=== PATIENT | female | born 1980 | race Caucasian/White ===

== ENCOUNTER 2021-05-29 15:31 | Emergency (ER) | payer MEDICAID ==
[~2021-05-29] VITALS: Ht 154.9 cm; Wt 56.0 kg
[2021-05-29 16:21] VITALS: BP 118/70
[2021-05-29] MEDS ORDERED: NAPR-56 PO (16:28)
[2021-05-29] MEDS ORDERED: PENI250T2 PO (16:28)
== END 2021-05-29 16:43 | disposition home or self-care (01) ==
LOC: ER 15:31
DX: K01.1 Impacted teeth (principal); K08.89 Other specified disorders of teeth and supporting structures; Z79.2 Long term (current) use of antibiotics; Z79.899 Other long term (current) drug therapy
CPT/HCPCS: 99283

== ENCOUNTER 2022-02-25 16:49 | Emergency (ER) | payer MEDICAID ==
[~2022-02-25] VITALS: Ht 157.5 cm; Wt 62.6 kg
[2022-02-25 17:21] VITALS: BP 117/72
== END 2022-02-25 18:36 | disposition home or self-care (01) ==
LOC: ER 16:51
DX: F41.9 Anxiety disorder, unspecified (principal); M25.511 Pain in right shoulder; R53.1 Weakness
CPT/HCPCS: 73030; 99283

== ENCOUNTER 2022-09-30 15:53 | Emergency (ER) | payer MEDICAID ==
[~2022-09-30] VITALS: Ht 154.9 cm; Wt 70.0 kg
[2022-09-30 16:21] VITALS: BP 112/57
[2022-09-30 16:55] LABS: BASOPHILS # (AUTO) 0.1 X10'3 (0-0.2); BASOPHILS % (AUTO) 0.8 % (0-1); EOSINOPHILS % (AUTO) 0.6 % (0-6); HEMATOCRIT 41.1 % (35.0-45.0); HEMOGLOBIN 13.4 g/dl (12.0-16.0); LYMPHOCYTES # (AUTO) 2.3 X10'3 (1.1-4.8); LYMPHOCYTES % (AUTO) 28.1 % (21-51); MEAN CORPUSCULAR HEMOGLOBIN 27.4 PG (27.0-31.0); MEAN CORPUSCULAR HGB CONC 32.7 g/dL (33.0-36.5); MEAN CORPUSCULAR VOLUME 83.9 FL (78-98); MEAN PLATELET VOLUME 8.5 FL (7.4-10.4); MONOCYTES # (AUTO) 0.6 X10'3 (0-0.9); MONOCYTES % (AUTO) 7.1 % (2-12); NEUTROPHILS # (AUTO) 5.2 X10'3 (1.8-7.7); NEUTROPHILS % (AUTO) 63.4 % (42-75); PLATELET COUNT 306 X10'3 (140-440); RED CELL DISTRIBUTION WIDTH 13.2 % (11.5-14.5); WHITE BLOOD COUNT 8.2 X10'3 (4.5-11.0)
[2022-09-30 18:03] LABS: ALANINE AMINOTRANSFERASE 14 U/L (12-78); ALBUMIN 3.6 G/DL (3.4-5.0); ALBUMIN/GLOBULIN RATIO 0.9 (1.1-1.5); ALKALINE PHOSPHATASE 94 IU/L (46-116); ANION GAP 10 (8-16); ASPARTATE AMINO TRANSFERASE 21 U/L (10-37); BILIRUBIN,TOTAL 0.2 MG/DL (0.1-1.0); BLOOD UREA NITROGEN 10 MG/DL (7-18); BUN/CREATININE RATIO 12.3 (10.0-20.0); CALCIUM 9.6 MG/DL (8.5-10.1); CHLORIDE 105 MMOL/L (99-107); CREATININE 0.81 MG/DL (0.40-0.90); GLUCOSE 90 MG/DL (70-104); SODIUM 140 MMOL/L (135-145); TOTAL CARBON DIOXIDE 24.6 MMOL/L (24-32); TOTAL PROTEIN 7.7 G/DL (6.4-8.2); eGFR 78 ML/MIN
[2022-09-30 18:04] LABS: POTASSIUM 4.6 MMOL/L (3.5-5.1)
== END 2022-09-30 18:22 | disposition home or self-care (01) ==
LOC: ER 15:54
DX: J06.9 Acute upper respiratory infection, unspecified (principal); Z20.822 Contact with and (suspected) exposure to COVID-19
CPT/HCPCS: 36415; 71045; 80053; 85025; 87811; 99284

== ENCOUNTER 2022-10-04 14:09 | Emergency (ER) | payer MEDICAID ==
[~2022-10-04] VITALS: Ht 154.9 cm; Wt 63.0 kg
[2022-10-04 14:17] VITALS: BP 124/62
[2022-10-04] MEDS ORDERED: acetaminophen 325mg tablet PO ONE (15:30)
[2022-10-04] MEDS ORDERED: amox tr/potassium clavulanate 875/125mg TAB PO ONE (15:30)
[2022-10-04] MEDS ORDERED: HYDR-3973 PO (15:54)
[2022-10-04] MEDS ORDERED: AMOX-117 PO (15:54)
== END 2022-10-04 16:18 | disposition home or self-care (01) ==
LOC: ER 14:10
DX: K04.7 Periapical abscess without sinus (principal); Z79.899 Other long term (current) drug therapy
CPT/HCPCS: 99283